=== PATIENT | female | born 2000 | race Asian ===

== ENCOUNTER 2022-04-22 17:30 | Emergency (ER) | payer BC, OTHER ==
[~2022-04-22] VITALS: Ht 165.1 cm; Wt 62.9 kg
[2022-04-22] MEDS ORDERED: IBUP600T28 PO (19:42)
[2022-04-22 20:25] VITALS: BP 142/83
== END 2022-04-22 20:33 | disposition home or self-care (01) ==
LOC: ER 17:35
DX: S52.502A Unspecified fracture of the lower end of left radius, initial encounter for closed fracture (principal); V00.311A Fall from snowboard, initial encounter; Y93.23 Activity, snow (alpine) (downhill) skiing, snowboarding, sledding, tobogganing and snow tubing; Y92.89 Other specified places as the place of occurrence of the external cause; Y99.8 Other external cause status
CPT/HCPCS: 29105; 73070; 73100